=== PATIENT | female | born 1970 | race Caucasian/White ===

== ENCOUNTER 2019-03-05 06:42 | Emergency (ER) | payer SELFPAY ==
[~2019-03-05] VITALS: Ht 165.1 cm; Wt 67.6 kg
[2019-03-05 06:47] VITALS: BP 114/68; Ht 165.1 cm; Wt 67.6 kg
== END 2019-03-05 07:30 | disposition home or self-care (01) ==
LOC: ED 06:42 → EDSEX 06:42 → ED 07:30
DX: N39.0 Urinary tract infection, site not specified (principal)